=== PATIENT | female | born 1990 | race American Indian/Alaskan Native ===

== ENCOUNTER 2018-08-11 22:59 | Emergency (ER) | payer SELFPAY ==
[2018-08-11 23:21] VITALS: BP 123/84; PULSE 99; RESP 16; TEMP 98.2; O2SAT 100
[2018-08-11 23:41] LABS: HCG,QUALITATIVE URINE NEGATIVE (NEGATIVE)
[2018-08-11 23:43] LABS: SQUAMOUS EPITHIAL 18 /hpf (0-5); URINE BACTERIA RARE (<OCC); URINE BILIRUBIN NEGATIVE (NEGATIVE); URINE CLARITY Hazy (Clear); URINE COLOR Yellow (YELLOW); URINE GLUCOSE (UA) NORMAL (Normal); URINE LEUKOCYTE ESTERASE NEG Leu/uL (Negative); URINE PROTEIN NEGATIVE (NEGATIVE)
[2018-08-11 23:44] LABS: URINE BLOOD TRACE (NEGATIVE)
[2018-08-11 23:52] LABS: BARBITURATES, UR NEGATIVE (NEGATIVE); BENZODIAZEPINES, UR NEGATIVE (NEGATIVE); OPIATES, UR NEGATIVE (NEGATIVE); PHENCYCLIDINE, UR NEGATIVE (NEGATIVE)
--- NOTE | 2018-08-12 00:09 | C.PDOC ---
History Of Present Illness 28 y/o F p/w request to talk to someone because she reports she found her daughter performing oral sex with her landlord. She denies any HI/SI/hallucinations. She denies any fever, chest pain, or dyspnea. Time Seen by Provider: 08/11/18 23:08 Chief Complaint (Nursing): Medical Clearance Past Medical History Vital Signs: Last Vital Signs Temp 98.2 F 08/11/18 23:20 Pulse 99 H 08/11/18 23:20 Resp 16 08/11/18 23:20 BP 123/84 08/11/18 23:20 Pulse Ox 100 08/11/18 23:20 Family History: States: No Known Family Hx - Social History Hx Alcohol Use: Yes Hx Substance Use: No - Immunization History Hx Tetanus Toxoid Vaccination: No Hx Influenza Vaccination: No Hx Pneumococcal Vaccination: No Review Of Systems Except As Marked, All Systems Reviewed And Found Negative. Constitutional: Negative for: Fever Cardiovascular: Negative for: Chest Pain Physical Exam - Physical Exam Appears: Non-toxic Skin: Normal Color Head: Normacephalic Oral Mucosa: Moist Cardiovascular: Rhythm Regular Respiratory: No Accessory Muscle Use Pulses: Left Radial: Normal, Right Radial: Normal Neurological/Psych: Normal Speech ED Course And Treatment O2 Sat by Pulse Oximetry: 100 Medical Decision Making Medical Decision Making: Patient wished to leave ED, I was informed by RN. Patient left. Disposition - Disposition Disposition: ELOPEMENT - ER ONLY Disposition Time: 00:09 Condition: STABLE - Clinical Impression Clinical Impression: Medical assessment
== END 2018-08-12 00:10 | disposition left against medical advice (07) ==
LOC: C.ER 22:59
DX: Z00.00 Encounter for general adult medical examination without abnormal findings (principal)
CPT/HCPCS: 81001; 84703; 99282; G0480